=== PATIENT | male | born 1960 | race Caucasian/White ===

== ENCOUNTER → 2017-01-02 | Outpatient (CLI) | payer OTHER ==
[~2017-01-02] MED LIST: IOPAMIDOL (ISOVUE 370) 100 ML BTL IV ONE
[2017-01-02 15:03] LABS: CREATININE 1.2 mg/dL (0.7-1.3); GLOMERULAR FILTRATION RATE > 60
== END ==
LOC: FIMAGING 14:17
PROVIDERS: ATTEND Surgery
DX: I99.9 Unspecified disorder of circulatory system (principal); S90.421A Blister (nonthermal), right great toe, initial encounter; E66.01 Morbid (severe) obesity due to excess calories; E11.9 Type 2 diabetes mellitus without complications
CPT/HCPCS: Q9967

== ENCOUNTER 2017-03-21 05:51 | Emergency (ER) | payer OTHER ==
[2017-03-21 06:03] VITALS: RESP 16
--- NOTE | 2017-03-21 06:04 | EDPHY ---
H & P Stated Complaint: DONT FEEL RIGHT, FEEL WEAK, PROFUSELY SWEATING, BGL 248 AT 0230, DID 70 U Source: Patient - Medical/Surgical History Hx Asthma: No Hx Chronic Respiratory Disease: No Hx Diabetes: Yes Hx Cardiac Disease: No Hx Renal Disease: No Hx Cirrhosis: Yes Hx Alcoholism: No Hx HIV/AIDS: No Hx Splenectomy or Spleen Trauma: No Other PMH: diabetes, hemochromatosis, neuropathy, high triglycerides, liver biopsy 20yrs ago, blood infection 5yrs ago, on inhalers (no asthma dx) - Social History Smoking Status: Never smoked HPI/ROS: HPI CHIEF COMPLAINT: Diaphoresis, generalized weakness HISTORY OF PRESENT ILLNESS: This patient 56-year-old male significant past medical history for insulin-dependent diabetes he tells me takes a regimen of Humulin 70 units IR 500 in the morning and 50 units at night. He states that he gets up to go to work around 2:00 a.m.. He has to be at work by 4:00 a.m.. He ate breakfast around 230. He took his regular normal 70 units of insulin and then made his way into work. Upon arrival to work he felt weak and did not feel well so we decided to turn around to go back to his car when he got diaphoretic. His weakness got more pronounced diffusely. He was brought to the emergency room by private vehicle with a friend that he has to come and pick him up. Upon arrival in the emergency room he is complaining of generalized weakness some mild confusion or problems with this thoughts as well as diaphoresis. Denies any pain anywhere specifically denies chest pain or shortness of breath. Upon arrival we did check his blood sugar his blood sugars 48. He states when he checked his blood sugar after eating he was in the 240s. Past Medical History: Hypertension, hyperlipidemia, coronary artery disease with stent, insulin-dependent diabetes, morbid obesity, severe diabetic neuropathy, right chronic great toe wound/diabetic ulcer, new left great toe diabetic ulcer. Past Surgical History: No recent surgery Social History: Denies daily use drugs alcohol tobacco products. Family History: Noncontributory ROS REVIEW OF SYSTEMS: A comprehensive 10 point review of systems is otherwise negative aside from elements mentioned in the history of present illness. Exam Constitutional diaphoretic, triage nursing summary reviewed, vital signs reviewed, awake/alert. Eyes normal conjunctivae and sclera, EOMI, PERRLA. HENT normal inspection, atraumatic, moist mucus membranes, no epistaxis, neck supple/ no meningismus, no raccoon eyes. Respiratory clear to auscultation bilaterally, normal breath sounds, no respiratory distress, no wheezing. Cardiovascular rate normal, regular rhythm, no murmur, no edema, distal pulses normal. Gastrointestinal soft, non-tender, no rebound, no guarding, normal bowel sounds, no distension, no pulsatile mass. Genitourinary no CVA tenderness. Musculoskeletal no midline vertebral tenderness, full range of motion, no calf swelling, no tenderness of extremities, no meningismus, good pulses, neurovascularly intact. Left Foot: Great Toe: Nail is missing, there is some skin excoriation. Consistent with early diabetic ulcer. Skin diaphoresis, pink, warm, & dry, no rash, skin atraumatic. Neurologic awake, alert and oriented x 3, AAOx3, moves all 4 extremities equally, motor intact, sensory intact, CN II-XII intact, normal cerebellar, normal vision, normal speech. Psychiatric normal mood/affect. Heme/Lymph/Immune no lymphadenopathy. Differential Diagnosis: Includes but is not limited to in a particular order hypoglycemia causing and generalized weakness and diaphoresis, infection, sepsis , acute myocardial infarction, electrolyte disturbance, insulin overdose Medical Decision Making: Plan for this patient given that his blood sugars chest found to be low 48 upon arrival and diaphoresis generalized weakness he is still mentating appropriately we will give him p.o. juice and food to eat to bring his sugar up. Will start an IV he will be placed on full broach trouble shooter , obtain EKG and troponin basic blood work. Will need to monitor closely for ongoing hypoglycemia. Re-evaluation: 0625AM: This patient reports to me that he had progressive soup this morning with elbow noodles, however did not have a protein pre area typically he eats a protein for his morning meal. He took her normal insulin that he normally does. 0625AM: I did re-evaluate the patient this time he has had peanut butter and crackers and 2 apple juice. We will also get him a meal. He is feeling better. 0640AM: Plan for this patient q.1 hour blood sugars until stable. If he remains stable with normal blood sugars I will allow her to go home. Patient is signed over to Dr. Tabatha Whitman at 7:00 a.m. shift change. EKG interpretation by me on record in [employer] system. Impression time of EKG 6:23 a.m. this is sinus rhythm first-degree AV block. OR interval noted to be 212. I do not appreciate acute ischemic change. On this EKG compared to his old EKG dated 03/06/2015 it is unchanged. 0630AM: Resting. feeling better after PO Food. Will check q.1 hour Accu-Cheks. (Jhonatan Husain) Constitutional: Initial Vital Signs Temperature (C) 36.4 C 03/21/17 06:01 Heart Rate 78 03/21/17 06:01 Respiratory Rate 16 03/21/17 06:01 Blood Pressure 167/67 H 03/21/17 06:01 O2 Sat (%) 97 03/21/17 06:01 O2 Delivery Mode Room Air Allergies/Adverse Reactions: tide soap Allergy (Uncoded 03/06/15 12:02) Home Medications: Medication Instructions Recorded ESTAZOLAM 03/21/17 Flovent Diskus 03/21/17 Glucophage 1000 mg 03/21/17 Humulin R U-500 03/21/17 Lipitor 03/21/17 PRINIVIL 03/21/17 Phentermine HCl 03/21/17 Proair Hfa 03/21/17 Singulair 03/21/17 Topamax 03/21/17 Tricor 03/21/17 Wellbutrin Sr 03/21/17 Medical Decision Making Other Provider: I assumed care of this patient from Dr. Husain at 7:00 a.m.. Patient has eaten a meal. Repeat blood sugar at 7:30 a.m. is 107. At 8:30 a.m. he is sleeping. Will recheck his blood sugar around 9. Repeat blood sugar after 9:00 a.m. he is 108. He is comfortable managing his blood sugars at home. He feels much better, well enough to return home. He is discharged in improved condition. (Tabatha Whitman) - Data Points Laboratory Results: Laboratory Results 03/21/17 06:17 03/21/17 06:17 03/21/17 03/21/17 03/21/17 07:09 06:23 06:17 WBC RBC Hgb Hct MCV MCH MCHC RDW Plt Count MPV Neut % (Auto) Lymph % (Auto) [place] % (Auto) Eos % (Auto) Baso % (Auto) Nucleat RBC Rel Count Absolute Neuts (auto) Absolute Lymphs (auto) Absolute Monos (auto) Absolute Eos (auto) Absolute Basos (auto) Absolute Nucleated RBC Immature Gran % Immature Gran # PT INR APTT Sodium 145 mEq/L H mEq/L (134-144) Potassium 3.7 mEq/L mEq/L (3.5-5.2) Chloride 108 mEq/L mEq/L (97-110) Carbon Dioxide 23 mEq/l mEq/l (22-31) Anion Gap 14 mEq/L mEq/L (8-16) BUN 29 mg/dL H mg/dL (7-23) Creatinine 1.2 mg/dL mg/dL (0.7-1.3) Estimated GFR > 60 Glucose 44 mg/dL L mg/dL (70-100) POC Glucose 107 mg/dL H mg/dL 67 mg/dL L mg/dL (70-100) (70-100) Calcium 10.1 mg/dL mg/dL (8.5-10.4) Total Bilirubin 0.4 mg/dL mg/dL (0.1-1.4) Conjugated Bilirubin 0.3 mg/dL mg/dL (0.0-0.5) Unconjugated Bilirubin 0.1 mg/dL mg/dL (0.0-1.1) AST 23 IU/L IU/L (17-59) ALT 47 IU/L IU/L (21-72) Alkaline Phosphatase 63 IU/L IU/L (38-126) Troponin I < 0.012 ng/mL ng/mL (0-0.034) Total Protein 6.9 g/dL g/dL (6.3-8.2) Albumin 4.4 g/dL g/dL (3.5-5.0) Lipase 131.0 IU/L IU/L (23-300) 03/21/17 03/21/17 03/21/17 06:17 06:17 06:04 WBC 12.37 10^3/uL H 10^3/uL (3.80-9.50) RBC 4.60 10^6/uL 10^6/uL (4.40-6.38) Hgb 15.3 g/dL g/dL (13.7-17.5) Hct 44.5 % % (40.0-51.0) MCV 96.7 fL fL (81.5-99.8) MCH 33.3 pg pg (27.9-34.1) MCHC 34.4 g/dL g/dL (32.4-36.7) RDW 12.6 % % (11.5-15.2) Plt Count 326 10^3/uL 10^3/uL (150-400) MPV 9.1 fL fL (8.7-11.7) Neut % (Auto) 69.4 % % (39.3-74.2) Lymph % (Auto) 18.0 % % (15.0-45.0) [place] % (Auto) 9.0 % % (4.5-13.0) Eos % (Auto) 1.5 % % (0.6-7.6) Baso % (Auto) 0.6 % % (0.3-1.7) Nucleat RBC Rel Count 0.0 % % (0.0-0.2) Absolute Neuts (auto) 8.58 10^3/uL H 10^3/uL (1.70-6.50) Absolute Lymphs (auto) 2.23 10^3/uL 10^3/uL (1.00-3.00) Absolute Monos (auto) 1.11 10^3/uL H 10^3/uL (0.30-0.80) Absolute Eos (auto) 0.19 10^3/uL 10^3/uL (0.03-0.40) Absolute Basos (auto) 0.08 10^3/uL 10^3/uL (0.02-0.10) Absolute Nucleated RBC 0.00 10^3/uL 10^3/uL (0-0.01) Immature Gran % 1.5 % H % (0.0-1.1) Immature Gran # 0.18 10^3/uL H 10^3/uL (0.00-0.10) PT 12.6 SEC SEC (12.0-15.0) INR 0.95 (0.83-1.16) APTT 23.4 SEC SEC (23.0-38.0) Sodium Potassium Chloride Carbon Dioxide Anion Gap BUN Creatinine Estimated GFR Glucose POC Glucose 48 mg/dL L mg/dL (70-100) Calcium Total Bilirubin Conjugated Bilirubin Unconjugated Bilirubin AST ALT Alkaline Phosphatase Troponin I Total Protein Albumin Lipase Medications Given: Discontinued Medications Sodium Chloride (Ns) 1,000 mls @ 0 mls/hr IV EDNOW ONE; Wide Open PRN Reason: Protocol Stop: 03/21/17 06:15 Last Admin: 03/21/17 06:21 Dose: 1,000 mls Point of Care Test Results: 03/21/17 03/21/17 03/21/17 06:04 06:23 07:09 POC Glucose 48 L 67 L 107 H Departure - Departure Disposition: Home, Routine, Self-Care Clinical Impression: Hypoglycemia Condition: Fair Instructions: Hypoglycemia in a Person with Diabetes (ED) Referrals: Jarad Suresh MD [Primary Care Provider] - As per Instructions
[2017-03-21] MEDS ORDERED: NS 1,000 ML IV ONE (06:14)
[2017-03-21 06:26] LABS: % IMMATURE GRANULYOCYTES 1.5 % (0.0-1.1); ABSOLUTE IMMATURE GRANULOCYTES 0.18 10^3/uL (0.00-0.10); ADD DIFF? NO; ADD MORPH? NO; ADD SCAN? NO; ATYPICAL LYMPHOCYTE FLAG 10 (0-99); FRAGMENT RBC FLAG 0 (0-99); HEMATOCRIT 44.5 % (40.0-51.0); HEMOGLOBIN 15.3 g/dL (13.7-17.5); LEFT SHIFT FLG 10 (0-99); LIPEMIA HEMOLYSIS FLAG 90 (0-99); MEAN CELL HEMOGLOBIN 33.3 pg (27.9-34.1); MEAN CELL HEMOGLOBIN CONCENTR. 34.4 g/dL (32.4-36.7); MEAN CELL VOLUME 96.7 fL (81.5-99.8); MEAN PLATELET VOLUME 9.1 fL (8.7-11.7); PLATELET CLUMPS FLAG 10 (0-99); PLATELET COUNT 326 10^3/uL (150-400); RED CELL DISTRIBUTION WIDTH 12.6 % (11.5-15.2)
--- NOTE | 2017-03-21 06:26 | CPEKG ---
Heart Rate: 75 RR Interval: 800 P-R Interval: 212 QRSD Interval: 100 QT Interval: 392 QTC Interval: 438 P [place]: 41 QRS [place]: 0 T Wave [place]: 28 EKG Severity - ABNORMAL ECG - EKG Impression: SINUS RHYTHM EKG Impression: FIRST DEGREE AVB IS NEW IN COMPARISON TO PRIOR EKG Impression: FIRST DEGREE AV BLOCK EKG Impression: ABNRM R PROG, CONSIDER ASMI OR LEAD PLACEMENT Electronically Signed By: Rogelio Smith 23-Mar-2017 15:23:46
[2017-03-21 06:36] LABS: ALANINE AMINOTRANSFERASE 47 IU/L (21-72); ALBUMIN 4.4 g/dL (3.5-5.0); ALKALINE PHOSPHATASE 63 IU/L (38-126); ANION GAP 14 mEq/L (8-16); ASPARTATE AMINOTRANSFERASE 23 IU/L (17-59); BILIRUBIN,TOTAL 0.4 mg/dL (0.1-1.4); BILIRUBIN-CONJUGATED 0.3 mg/dL (0.0-0.5); BILIRUBIN-UNCONJUGATED 0.1 mg/dL (0.0-1.1); CALCIUM 10.1 mg/dL (8.5-10.4); CARBON DIOXIDE 23 mEq/l (22-31); CHLORIDE 108 mEq/L (97-110); CREATININE 1.2 mg/dL (0.7-1.3); GLOMERULAR FILTRATION RATE > 60; GLUCOSE 44 mg/dL (70-100); POTASSIUM 3.7 mEq/L (3.5-5.2); SODIUM 145 mEq/L (134-144); TOTAL PROTEIN 6.9 g/dL (6.3-8.2)
[2017-03-21 06:37] LABS: INR 0.95 (0.83-1.16); PROTIME(PATIENT) 12.6 SEC (12.0-15.0)
[2017-03-21 06:38] LABS: APTT 23.4 SEC (23.0-38.0)
[2017-03-21 06:47] LABS: TROPONIN I < 0.012 ng/mL (0-0.034)
[2017-03-21 09:09] VITALS: BP 138/61; PULSE 77; O2SAT 98
[2017-03-21 09:10] VITALS: TEMP 98.2
== END 2017-03-21 09:31 | disposition home or self-care (01) ==
DX: E11.649 Type 2 diabetes mellitus with hypoglycemia without coma (principal); I10 Essential (primary) hypertension; I25.10 Atherosclerotic heart disease of native coronary artery without angina pectoris; E86.9 Volume depletion, unspecified; Z79.4 Long term (current) use of insulin; Z95.5 Presence of coronary angioplasty implant and graft